=== PATIENT | female | born 1960 | race Hispanic/Latino ===

== ENCOUNTER → 2018-06-02 | Day surgery (SDC) | payer OTHER ==
[~2018-06-02] MED LIST: ACETAMINOPHEN 1000 MG/100 ML IV ONE; ASPIR 8181 MG PO; BUPIVACAINE HCL 0.5% INJ 30 ML VIAL INJ ONE; CEFAZOLIN SOD 2 GM/D5W 50ML 50 ML IV ONE; CELEBREX; CYMBALTA20 MG PO; DEXAMETHASONE SOD PHOS INJ 4 MG/ML VIAL ONE; FENTANYL CITRATE/PF 100MCG/2 ML INJ ONE; KETOROLAC TROMETHAMINE 30 MG/ML VIAL ONE; LIDOCAINE 2%/ EPINEPHRINE 20ML MDV ONE; LIDOCAINE HCL 2% LOCAL INJ 5 ML SDV VIAL INJ ONE; METOCLOPRAMIDE HCL 10 MG/2ML VIAL ONE; MIDAZOLAM HCL 2 MG/2 ML VIAL ONE; ONDANSETRON HCL INJ 2 MG/ML VIAL ONE; PHENYLEPHRINE HCL 1% 10 MG/ML VIAL ONE; PLAVIX75 MG PO; PROPOFOL IV EMULSION 10 MG/ML 20 ML VIAL ONE; ROPIVACAINE 0.5% 5 MG/ML 30 ML SDV ONE; SEVOFLURANE INHAL SOLN 250 ML PEN BTL ONE; WELLBUTRIN; WELLBUTRIN SR150 MG PO
[2018-06-02 09:42] LABS: BASOPHILS # (AUTO) 0.1 (0.0-0.1); EOSINOPHILS # (AUTO) 0.2 (0.0-0.4); EOSINOPHILS % 3.1 % (0.0-6.0); HEMATOCRIT 41.1 % (34.2-44.1); HEMOGLOBIN 13.9 g/dL (12.0-16.0); LYMPHOCYTES # (AUTO) 2.7 (1.0-3.2); LYMPHOCYTES % 40.6 % (18.0-39.1); MEAN CORPUSCULAR HGB CONC 33.8 g/dL (31-35); MEAN CORPUSCULAR VOLUME 91.7 fL (81-99); MONOCYTES # (AUTO) 0.3 (0.2-0.8); MONOCYTES % 4.6 % (4.4-11.3); NEUTROPHILS # (AUTO) 3.4 (2.1-6.9); NEUTROPHILS % 50.6 % (38.7-80.0); PLATELET COUNT 208 x10e3/uL (140-360); RED BLOOD COUNT 4.48 x10e6/uL (3.6-5.1); RED CELL DISTRIBUTION WIDTH 12.4 % (11.7-14.4)
[2018-06-02 14:50] VITALS: BP 145/83
--- NOTE | 2018-06-03 11:04 | Operative Report ---
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 PREOPERATIVE DIAGNOSES 1. Right ankle contracture. 2. 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 3. Right foot degenerative joint arthritis, end stage, of the talonavicular joint. 4. Right foot degenerative joint arthritis, end stage of the calcaneocuboid joint. 5. Right foot posterior tibial tendon rupture. 6. Calcaneal valgus deformity, right foot. POSTOPERATIVE DIAGNOSES 1. Right ankle contracture. 2. 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 3. Right foot degenerative joint arthritis, end stage, of the talonavicular joint. 4. Right foot degenerative joint arthritis, end stage of the calcaneocuboid joint. 5. Right foot posterior tibial tendon rupture. 6. Calcaneal valgus deformity, right foot. PROCEDURES PERFORMED 1. Right foot gastrocnemius recession. 2. Right foot subtalar joint arthrodesis. 3. Right foot talonavicular joint arthrodesis. 4. Right foot calcaneocuboid joint arthrodesis. 5. Right foot posterior tibial tendon rupture repair. 6. Use of intraoperative fluoroscopy. 7. Right tibial nerve block. 8. Application of posterior splint. 9. Application of human tissue allograft for soft-tissue reinforcement. ANESTHESIA: General with a sciatic nerve block. HEMOSTASIS: Thigh tourniquet at 250 mmHg. MATERIALS USED 1. Dayton 6.5 partially threaded, cannulated screw of the appropriate length. 2. [place] locking plate with 6 locking screws 2.5 of the appropriate length. 3. Ben 3.5 partially threaded, cannulated lag screw of the appropriate length. 4. Ben 20-mm taurus of the appropriate length. 5. BIO4 bone graft. 6. [employer] tendon wrap. 7. Injectable human tissue allograft for soft-tissue reinforcement. ESTIMATED BLOOD LOSS: Less than 10 mL. COMPLICATIONS: None. DETAILS OF PROCEDURE: After informed consent was obtained, the patient was brought to the operating room and placed on the operating table in supine position. General anesthesia was obtained. A pneumatic thigh tourniquet was applied to the right thigh. The right lower extremity was then scrubbed, prepped, and draped in the usual aseptic manner. Next, the right lower extremity was then elevated for approximately 1 minute. After exsanguinating utilizing the Esmarch bandage, the right lower extremity thigh tourniquet was inflated to 250 mmHg. Attention was then directed to the posterior aspect of the right leg, where a linear incision was made along the myotendinous junction of the gastrocnemius muscle approximately 3 cm in length from proximal to distal just medial to the midline. The incision was deepened down utilizing sharp and blunt dissection technique. All vital structures were identified and retracted. All bleeders were identified, ligated, and cauterized as necessary. Next, the gastrocnemius aponeurosis was identified and transected transversely. The ankle contracture was noted to be reduced. The wound was then irrigated with copious amounts of normal saline. The wound was then coapted 3-0 Vicryl and 4-0 nylon. Attention was directed to the lateral aspect of the right foot where a linear incision was made from the tip of the lateral malleolus to the base of the 4th metatarsal. The incision was down utilizing sharp and blunt dissection technique. All vital structures were identified and retracted. All bleeders were identified, ligated, and cauterized as necessary. Next, the extensor digitorum brevis muscle belly was identified. It was reflected off of its insertion in an L-shaped fashion. At this point, the sinus Sunil tonsillectomy was performed utilizing sharp dissection technique. The subtalar joint and calcaneal joint were visualized. At this time, it was noted that there was significant denudation of cartilage with spurring noted along both joints. Next, all remaining articular cartilage from the subtalar joint and the calcaneocuboid joint was resected and removed from the surgical site in an in situ fashion utilizing osteotomes and curettes. Next, the wounds were irrigated with copious amounts of normal saline. Both arthrodesis sites had been prepped with heavy fenestration utilizing a 1.2 drill bit followed by a small osteotome and mallet. Next, attention was directed to the medial aspect of the right foot, where an incision was made from proximal to distal approximately 5 cm in length just medial to the tibialis anterior tendon along the level of the ankle joint distally to the navicular tuberosity. The incision was deepened down utilizing sharp and blunt dissection technique. All vital structures were identified and retracted. All bleeders were identified, ligated, and cauterized as necessary. Next, a linear capsulotomy was performed, and the capsule was reflected both medially and laterally, exposing the talonavicular joint. At this time, it was noted that there was significant dorsal spurring along with denudation of cartilage. Next, all remaining articular cartilage was resected and removed from the surgical site utilizing osteotomes and curettes in an in situ fashion. The wounds were irrigated with copious amounts of normal saline. The surgical fusion site was then prepped with heavy fenestration utilizing a 1.2 drill bit and a small osteotome and mallet. Next, attention was directed medially to the course of the posterior tibial tendon. The posterior tibial tendon sheath was longitudinally incised, and the tendon was examined. At this time, it was noted that the tendon had significant mucoid degeneration with longitudinal ruptures. All nonviable tendon was resected and removed from the surgical site. The tendon was reintubulated utilizing a 2-0 Vicryl. Next, BIO4 graft was placed across the fusion sites. Next, utilizing intraoperative fluoroscopy, the subtalar joint was reduced into the appropriate alignment. Temporary fixation was placed across the fusion site. At this time, intraoperative fluoroscopy was used, which showed good reduction of the deformity and good placement of the pin. Next, a cannulated screw was placed over the pin. It was a 6.5 partially threaded, cannulated screw of the appropriate length. At this time, intraoperative fluoroscopy was used, which showed good reduction of the deformity and good fixation across the fusion site in the lateral AP ankle and calcaneal axial views. Next, temporary fixation was removed. Next, attention was directed to the talonavicular joint, which was then reduced into the appropriate alignment with plantarflexion of the first ray. Temporary fixation was placed across the fusion site. At this time, it was noted utilizing intraoperative fluoroscopy that good reduction of the deformity was performed. Next, permanent fixation was completed utilizing a 3.5 partially threaded, cannulated screw of the appropriate length followed by placement of a locking plate medially consisting of a 6-hole locking plate where 3 locking screws were placed proximally, 2.5 of the appropriate length, followed by placement of 2 locking screws distally, 3.5 of the appropriate length, and a nonlocking screw 3.5 of the appropriate length. At this time, intraoperative fluoroscopy was used, which showed good reduction of the deformity and good fixation across the fusion site. Temporary fixation was removed. Attention was directed to the calcaneocuboid joint where two 20-mm taurus were placed across the fusion site. Intraoperative fluoroscopy was used, which showed good reduction of the deformity and good fixation across the fusion site. Next, the surgical sites were irrigated and coapted utilizing 2-0 Vicryl, 4-0 Vicryl, and 4-0 nylon. Next, the surgical sites were injected with 1 mL of human tissue allograft for soft-tissue reinforcement. Addendum: Prior to closing the medial incision, the posterior tibial tendon was wrapped in a tendon wrap to prevent adhesions. The right lower extremity surgical sites were then anesthetized with 10 mL of 0.5% Marcaine plain followed by a right tibial nerve block consisting of 5 mL of 0.5% Marcaine plain. Next, the right foot was then placed in a dry sterile dressing consisting of Xeroform, 4 x 4's, Kerlix and an Emir wrap. The pneumatic thigh tourniquet was deflated. Prompt hyperemic response was noted to all digits of the right lower extremity. The right lower extremity was then placed into a posterior splint consisting of 4 and 6 inch Webril, 4 x 30 splint and 4-inch and 6-inch Emir. The patient tolerated the procedure and the anesthesia well. The patient was transferred back to the recovery room with vital signs stable and neurovascular status intact to preop status. Job#: [id number]
== END | disposition home or self-care (01) ==
LOC: OR 08:46
PROVIDERS: ATTEND Podiatrist Foot & Ankle Surgery
DX: M66.871 Spontaneous rupture of other tendons, right ankle and foot (principal); M19.271 Secondary osteoarthritis, right ankle and foot; M24.574 Contracture, right foot; M21.071 Valgus deformity, not elsewhere classified, right ankle; M79.671 Pain in right foot; Z88.6 Allergy status to analgesic agent; Z91.040 Latex allergy status; Z88.5 Allergy status to narcotic agent; Z88.8 Allergy status to other drugs, medicaments and biological substances; Z91.048 Other nonmedicinal substance allergy status; I25.10 Atherosclerotic heart disease of native coronary artery without angina pectoris; F41.9 Anxiety disorder, unspecified
CPT/HCPCS: 27687; 28200; 28715; 36415; 76001; 85025; C1713 ×2; J0131; J0690; J1100; J1885; J2001 ×2; J2250; J2370; J2405; J2704; J2765; J2795; Q4100; Q4131